=== PATIENT | female | born 1950 | race Caucasian/White ===

== ENCOUNTER 2016-11-16 09:18 | Outpatient (CLI) | payer MEDICARE, OTHER ==
--- NOTE | 2016-11-16 12:30 | Ultrasound Report ---
COMPLETE ABDOMINAL ULTRASOUND: 11/16/2016 CLINICAL INDICATION: Abdominal bloating, pain. TECHNIQUE: Real-time scanning was performed with event marketing representative static images obtained. FINDINGS: The liver measures 14.9 cm. Hepatic echogenicity is mildly increased, suspicious for fatt y infiltration. No focal parenchymal lesion or intrahepatic biliary dilatation is present. The comm on bile duct measures 4 mm. The gallbladder is normal, as is the pancreas. The right kidney measure s 11.4 cm, and demonstrates a right extrarenal pelvis. The left kidney measures 11.1 cm, and is unre markable. The spleen measures 8.5 cm, and demonstrates normal echotexture. The abdominal aorta is n ormal in caliber. The inferior vena cava is unremarkable. No free fluid is present. IMPRESSION: MILDLY ECHOGENIC LIVER, COMPATIBLE WITH FATTY INFILTRATION. NO CHOLELITHIASIS OR BILIAR Y OBSTRUCTION. JOB #: [id number] EXT JOB #:[id number]
== END 2016-11-16 09:19 | disposition home or self-care (01) ==
LOC: DI 09:18
PROVIDERS: ATTEND Family Medicine
DX: R14.0 Abdominal distension (gaseous) (principal); F10.99 Alcohol use, unspecified with unspecified alcohol-induced disorder
CPT/HCPCS: 76700

== ENCOUNTER 2016-12-05 10:21 | Outpatient (CLI) | payer MEDICARE, OTHER ==
--- NOTE | 2016-12-06 15:57 | Mammography Report ---
DIGITAL SCREENING MAMMOGRAM: 12/05/2016 CLINICAL INDICATION: A 65-year-old with history of late childbearing, for screening. COMPARISON: Films from [place], [place] dated 02/02/2014, 07/26/2012. TECHNIQUE: Routine CC and MLO projections were obtained of the breasts. FINDINGS: Scattered fibroglandular tissue is present within the breasts. There are no dominant vonnie s, suspicious microcalcifications, or secondary signs of malignancy. In comparison to the previous st udies, there are no significant changes. ASSESSMENT: NO MAMMOGRAPHIC EVIDENCE OF MALIGNANCY. NO SIGNIFICANT INTERVAL CHANGES. RECOMMENDATION: Screening mammography is recommended annually. BIRADS category 1 - negative. STANDARD QUALIFYING STATEMENTS 1. This examination was reviewed with the aid of Computed-Aided Detection (CAD). 2. A negative or benign imaging report should not delay biopsy if clinically suspicious findings are present. Consider surgical consultation if warranted. More than 5% of cancers are not identified by i maging. 3. Dense breasts may obscure an underlying neoplasm. JOB #: [id number] EXT JOB #:[id number]
== END 2016-12-05 10:22 | disposition home or self-care (01) ==
LOC: DI.N 10:21
PROVIDERS: ATTEND Family Medicine
DX: Z12.31 Encounter for screening mammogram for malignant neoplasm of breast (principal)
CPT/HCPCS: 77067